=== PATIENT | female | born 1945 | race Caucasian/White ===

== ENCOUNTER 2016-05-30 18:41 | Inpatient (IN) | payer OTHER ==
[~2016-05-30] VITALS: Ht 147.3 cm; Wt 40.4 kg
[~2016-05-30 18:41] MED LIST: BACTRIM,SEPT1 TABLET PO; CARVEDILOL25 MG PO; CILOSTAZOL100 MG PO; COREG12.5 M1 PO; DOXYCYCLINE HY100 MG PO; DUONEB 2.5-0.5 M3 ML AEROSOL; HYCODAN SYRUP480 ML PO; LASIX40 MG PO; LEVAQUIN500 MG PO; LEXAPRO10 MG PO; LITE COAT ASPI325 M1 PO; NAMZARIC 14 MG1 EACH PO; NAMZARIC 21 MG1 EACH PO; NAMZARIC 28 MG1 EACH PO; NAMZARIC 7 MG-1 EACH PO; NICOTINE PATCH1 EAC2 TD; OXYCODONE-APAP1 EACH PO; PANTOPRAZOLE SO40 MG PO; PREDNISONE20 MG PO; PRINIVIL20 MG PO; PROVENTIL2.5 MG/3 M IH; SPIRIVA RESPIMAT4 GM IH; SPIRIVA1 INHALATI IH; SYMBICORT60 INHALAT IH; SYNTHROID50 MCG PO; Symbicort IH; VENTOLIN HFA18 GM IH; XANAX1 MG PO; ZOCOR40 MG PO; ZOLOFT100 MG PO
[2016-05-30 19:53] LABS: HEMATOCRIT 32.7 % (36.0-46.0); MCH 28.9 PG (29.0-34.0); MCHC 33.3 G/DL (30.0-36.0); MCV 86.7 FL (83-99); RBC DIS.WIDTH-CV 13.3 % (11.8-14.6); RBC DIS.WIDTH-SD 40.5 % (39-53); RED BLOOD COUNT 3.77 M/uL (3.80-5.20)
[2016-05-30 20:00] LABS: CHLORIDE 86 mEq/L (99-109); POTASSIUM 2.9 mEq/L (3.7-5.4)
[2016-05-30 20:01] LABS: SODIUM 130 mEq/L (136-147)
[2016-05-30 20:02] LABS: GLUCOSE 114 mg/dL (70-99)
[2016-05-30 20:03] LABS: ANION GAP 10 MEQ/L (2-14)
[2016-05-30 20:04] LABS: TOTAL BILIRUBIN 1.4 mg/dL (0.0-1.0)
[2016-05-30 20:05] LABS: ALKALINE PHOSPHATASE 81 IU/L (3-129)
[2016-05-30 20:06] LABS: GFR ESTIMATE (CALCULATED) > 59 mL/min/
[2016-05-30 20:07] LABS: UREA NITROGEN (BUN) 15 mg/dL (9-23)
[2016-05-30 20:29] LABS: TROP-I INTERPRETATION NEGATIVE; TROPONIN-I 0.09 ng/mL (0.0-0.30)
[2016-05-30 20:32] LABS: HEMATOLOGY COMMENT 1 SMEAR COMPATIBLE; MEAN PLAT.VOLUME 9.3 uM^3 (9.5-12.4)
[2016-05-30 20:42] LABS: PLATELET COUNT 138 K/uL (156-360); WHITE BLOOD COUNT 15.9 K/uL (4.1-10.2)
[2016-05-30 21:28] LABS: ADD MIUA? YES; BILIRUBIN SMALL; BLOOD NEGATIVE; COLOR YELLOW ((YELLOW)); GLUCOSE (STRIP) NEGATIVE; KETONES NEGATIVE; LEUKOCYTES TRACE; NITRITE NEGATIVE; PH, URINE 7.5 (5-8); PROTEIN (STRIP) NEGATIVE; SPECIFIC GRAVITY 1.017 (1.000-1.030)
[2016-05-30 21:43] LABS: EPITHELIAL CELLS NONE SEEN; RED BLOOD CELLS NONE SEEN /HPF (0-5); WHITE BLOOD CELLS 0-5 /HPF (0-5)
[2016-05-30 21:44] LABS: BACTERIA 1+; CASTS PRESENT /LPF; CRYSTALS NONE SEEN; MUCUS NONE SEEN; UCUL ADDED? NO
[2016-05-30 21:45] LABS: HYALINE CASTS 0-5 /LPF
[2016-05-30] MEDS ORDERED: DELTASONE20 M1 PO (23:03)
[2016-05-30] MEDS ORDERED: TYLENOL SINUS1 EA16 PO (23:04)
[2016-05-31 04:08] VITALS: BP 135/62
[2016-05-31 07:00] LABS: EOSINOPHIL (%) 1.7 % (0-5); EOSINOPHIL COUNT 0.2 K/uL (0-0.3); HEMATOCRIT 27.8 % (36.0-46.0); IMMATURE GRANULOCYTE (%) 1.2 % (0.0-0.7); IMMATURE GRANULOCYTE COUNT 0.1 K/uL; LYMPHOCYTE COUNT 1.6 K/uL (1.0-2.8); MCHC 33.5 G/DL (30.0-36.0); MCV 86.6 FL (83-99); MEAN PLAT.VOLUME 10.2 uM^3 (9.5-12.4); MONOCYTE (%) 7.3 % (3-12); MONOCYTE COUNT 0.7 K/uL (0-0.8); NEUTROPHIL (%) 72.2 % (45-76); NEUTROPHIL COUNT 6.7 K/uL (1.8-6.4); PLATELET COUNT 115 K/uL (156-360); RBC DIS.WIDTH-SD 44.1 % (39-53); RED BLOOD COUNT 3.21 M/uL (3.80-5.20); WHITE BLOOD COUNT 9.3 K/uL (4.1-10.2)
[2016-05-31 07:08] LABS: ANION GAP 8 MEQ/L (2-14); CHLORIDE 94 MEQ/L (99-109); GFR ESTIMATE (CALCULATED) > 59 mL/min/; SAMPLE HEMOLYSIS CHECK 0; SAMPLE ICTERIC CHECK 0; SAMPLE LIPEMIA CHECK 0; UREA NITROGEN (BUN) 11 mg/dL (9-23)
[2016-05-31 07:09] LABS: GLUCOSE 82 mg/dL (70-99); SODIUM 137 MEQ/L (136-147)
[2016-05-31 07:45] VITALS: BP 111/54
[2016-05-31 11:35] VITALS: BP 117/58
[2016-05-31 16:29] LABS: ANION GAP 3 MEQ/L (2-14); CHLORIDE 99 MEQ/L (99-109); GFR ESTIMATE (CALCULATED) > 59 mL/min/; SAMPLE HEMOLYSIS CHECK 0; SAMPLE ICTERIC CHECK 0; SAMPLE LIPEMIA CHECK 0; SODIUM 132 MEQ/L (136-147); UREA NITROGEN (BUN) 16 mg/dL (9-23)
[2016-05-31 16:36] LABS: GLUCOSE 167 mg/dL (70-99); POTASSIUM 4.7 MEQ/L (3.7-5.4)
[2016-05-31 16:40] VITALS: BP 132/63
[2016-05-31 20:00] VITALS: BP 146/61
[2016-05-31 23:43] VITALS: BP 136/89
[2016-06-01 03:33] VITALS: BP 109/49
[2016-06-01 06:48] LABS: EOSINOPHIL (%) 0.1 % (0-5); HEMATOCRIT 26.6 % (36.0-46.0); IMMATURE GRANULOCYTE COUNT 0.1 K/uL; LYMPHOCYTE COUNT 0.4 K/uL (1.0-2.8); MCH 28.5 PG (29.0-34.0); MCHC 32.3 G/DL (30.0-36.0); MCV 88.1 FL (83-99); MONOCYTE COUNT 0.3 K/uL (0-0.8); NEUTROPHIL (%) 91.3 % (45-76); NEUTROPHIL COUNT 8.1 K/uL (1.8-6.4); PLATELET COUNT 109 K/uL (156-360); RBC DIS.WIDTH-CV 14.2 % (11.8-14.6); RBC DIS.WIDTH-SD 45.1 % (39-53); RED BLOOD COUNT 3.02 M/uL (3.80-5.20); WHITE BLOOD COUNT 8.9 K/uL (4.1-10.2)
[2016-06-01 07:15] LABS: ANION GAP 4 MEQ/L (2-14); CHLORIDE 103 MEQ/L (99-109); GFR ESTIMATE (CALCULATED) > 59 mL/min/; GLUCOSE 146 mg/dL (70-99); POTASSIUM 4.6 MEQ/L (3.7-5.4); SAMPLE HEMOLYSIS CHECK 0; SAMPLE ICTERIC CHECK 0; SAMPLE LIPEMIA CHECK 0; SODIUM 133 MEQ/L (136-147); UREA NITROGEN (BUN) 10 mg/dL (9-23)
[2016-06-01 07:30] VITALS: BP 113/54
[2016-06-01 11:20] VITALS: BP 113/53
[2016-06-01 15:08] VITALS: BP 126/55
[2016-06-01 19:05] VITALS: BP 129/54
[2016-06-01 23:10] VITALS: BP 121/51
[2016-06-02 03:20] VITALS: BP 138/54
[2016-06-02 07:20] VITALS: BP 121/52
[2016-06-02 11:05] VITALS: BP 121/58
[2016-06-02 15:50] VITALS: BP 109/53
[2016-06-02 19:05] VITALS: BP 135/62
[2016-06-02 23:20] VITALS: BP 145/63
[2016-06-03 03:20] VITALS: BP 138/65
[2016-06-03 05:48] LABS: HEMATOCRIT 27.3 % (36.0-46.0); MCH 28.8 PG (29.0-34.0); MCHC 32.6 G/DL (30.0-36.0); MCV 88.3 FL (83-99); MEAN PLAT.VOLUME 9.1 uM^3 (9.5-12.4); PLATELET COUNT 130 K/uL (156-360); RBC DIS.WIDTH-CV 14.1 % (11.8-14.6); RED BLOOD COUNT 3.09 M/uL (3.80-5.20); WHITE BLOOD COUNT 13.2 K/uL (4.1-10.2)
[2016-06-03 05:51] LABS: SODIUM 139 mEq/L (136-147)
[2016-06-03 05:53] LABS: GLUCOSE 118 mg/dL (70-99)
[2016-06-03 05:54] LABS: ANION GAP 4 MEQ/L (2-14)
[2016-06-03 05:56] LABS: ALKALINE PHOSPHATASE 78 IU/L (3-129)
[2016-06-03 05:57] LABS: GFR ESTIMATE (CALCULATED) > 59 mL/min/
[2016-06-03 05:58] LABS: UREA NITROGEN (BUN) 11 mg/dL (9-23)
[2016-06-03 06:01] LABS: CHLORIDE 110 mEq/L (99-109); TOTAL BILIRUBIN 0.4 mg/dL (0.0-1.0)
[2016-06-03 07:20] VITALS: BP 117/67
[2016-06-03 11:40] VITALS: BP 124/56
[2016-06-03 16:15] VITALS: BP 139/60
[2016-06-03] MEDS ORDERED: NICOTINE PATCH1 EAC2 TD (19:54)
[2016-06-03] MEDS ORDERED: K-DUR20 MEQ PO (19:54)
[2016-06-03] MEDS ORDERED: LEVAQUIN500 MG PO (19:54)
[2016-06-03] MEDS ORDERED: LEVETIRACETAM500 MG PO (19:54)
== END 2016-06-03 21:15 | disposition home health service (06) | DRG 100 ==
LOC: EME 18:41 → 2EAST 22:31 → EDOF 22:31 → 2EAST 05-31 00:39
PROVIDERS: Emergency Medicine; Family Medicine; Internal Medicine
DX: G40.409 Other generalized epilepsy and epileptic syndromes, not intractable, without status epilepticus (principal); J96.00 Acute respiratory failure, unspecified whether with hypoxia or hypercapnia; J18.9 Pneumonia, unspecified organism; J44.1 Chronic obstructive pulmonary disease with (acute) exacerbation; E87.1 Hypo-osmolality and hyponatremia; F05 Delirium due to known physiological condition; J98.11 Atelectasis; E87.6 Hypokalemia; D64.9 Anemia, unspecified; I25.10 Atherosclerotic heart disease of native coronary artery without angina pectoris; K21.9 Gastro-esophageal reflux disease without esophagitis; E03.9 Hypothyroidism, unspecified; F41.9 Anxiety disorder, unspecified; M62.81 Muscle weakness (generalized); G89.29 Other chronic pain; Z99.81 Dependence on supplemental oxygen; F17.210 Nicotine dependence, cigarettes, uncomplicated; Z95.810 Presence of automatic (implantable) cardiac defibrillator; I25.2 Old myocardial infarction
CPT/HCPCS: 70450; 71010; 71020; 80048; 80048 91; 80053; 81003; 84484; 85025; 85027; 86850; 86900; 86901; 86920; 93005; 94640; 94640 76; 94760; 94799; 95819; 99202; 99281; 99285; J1650; J1953; J2060; J3480; J7050; J7512

== ENCOUNTER 2016-07-26 16:07 | Inpatient (IN) | payer OTHER ==
[~2016-07-26] VITALS: Ht 148.6 cm; Wt 46.8 kg
[~2016-07-26 16:07] MED LIST changes: +DELTASONE20 M1 PO; +K-DUR20 MEQ PO; +LEVETIRACETAM500 MG PO; +TYLENOL SINUS1 EA16 PO
[2016-07-26 17:00] LABS: EOSINOPHIL (%) 2.2 % (0-5); EOSINOPHIL COUNT 0.1 K/uL (0-0.3); HEMATOCRIT 34.5 % (36.0-46.0); IMMATURE GRANULOCYTE (%) 1.3 % (0.0-0.7); IMMATURE GRANULOCYTE COUNT 0.6 K/uL; MCH 28.1 PG (29.0-34.0); MCHC 32.2 G/DL (30.0-36.0); MCV 87.3 FL (83-99); MEAN PLAT.VOLUME 8.5 uM^3 (9.5-12.4); MONOCYTE (%) 8.9 % (3-12); MONOCYTE COUNT 0.4 K/uL (0-0.8); NEUTROPHIL (%) 65.3 % (45-76); PLATELET COUNT 170 K/uL (156-360); RBC DIS.WIDTH-CV 13.6 % (11.8-14.6); RED BLOOD COUNT 3.95 M/uL (3.80-5.20); WHITE BLOOD COUNT 4.6 K/uL (4.1-10.2)
[2016-07-26 17:14] LABS: CHLORIDE 96 mEq/L (99-109); SODIUM 134 mEq/L (136-147)
[2016-07-26 17:16] LABS: GLUCOSE 100 mg/dL (70-99)
[2016-07-26 17:17] LABS: ANION GAP 9 MEQ/L (2-14)
[2016-07-26 17:18] LABS: TOTAL BILIRUBIN 0.2 mg/dL (0.0-1.0)
[2016-07-26 17:19] LABS: ALKALINE PHOSPHATASE 76 IU/L (3-129)
[2016-07-26 17:20] LABS: GFR ESTIMATE (CALCULATED) > 59 mL/min/
[2016-07-26 17:21] LABS: UREA NITROGEN (BUN) 11 mg/dL (9-23)
[2016-07-26 17:24] LABS: TROP-I INTERPRETATION NEGATIVE; TROPONIN-I < 0.01 ng/mL (0.0-0.30)
[2016-07-26 18:59] LABS: ADD MIUA? YES; BILIRUBIN NEGATIVE; BLOOD SMALL; COLOR YELLOW ((YELLOW)); GLUCOSE (STRIP) NEGATIVE; KETONES NEGATIVE; LEUKOCYTES NEGATIVE; NITRITE NEGATIVE; PROTEIN (STRIP) NEGATIVE; UROBILINOGEN 0.2 MG/DL (0.2-1.0)
[2016-07-26 19:01] LABS: BACTERIA NONE SEEN /HPF; EPITHELIAL CELLS RARE /HPF; MUCUS TRACE /LPF; RED BLOOD CELLS 0-5 /HPF (0-5); UCUL ADDED? NO; WHITE BLOOD CELLS 0-5 /HPF (0-5)
[2016-07-26 19:18] LABS: INFLUENZA A VIRAL ANTIGEN NEGATIVE; INFLUENZA B VIRAL ANTIGEN POSITIVE
[2016-07-26 20:12] LABS: TROP-I INTERPRETATION NEGATIVE; TROPONIN-I < 0.01 ng/mL (0.0-0.30)
[2016-07-26 21:57] VITALS: BP 122/56
[2016-07-26 23:32] VITALS: BP 120/55
[2016-07-27 05:12] LABS: EOSINOPHIL (%) 0 % (0-5); HEMATOCRIT 30.7 % (36.0-46.0); IMMATURE GRANULOCYTE (%) 1.1 % (0.0-0.7); IMMATURE GRANULOCYTE COUNT 0.3 K/uL; LYMPHOCYTE COUNT 0.7 K/uL (1.0-2.8); MCH 28.2 PG (29.0-34.0); MCHC 32.6 G/DL (30.0-36.0); MCV 86.5 FL (83-99); MEAN PLAT.VOLUME 8.7 uM^3 (9.5-12.4); MONOCYTE (%) 4.6 % (3-12); MONOCYTE COUNT 0.1 K/uL (0-0.8); NEUTROPHIL (%) 70.9 % (45-76); PLATELET COUNT 138 K/uL (156-360); RBC DIS.WIDTH-CV 13.4 % (11.8-14.6); RBC DIS.WIDTH-SD 41.3 % (39-53); RED BLOOD COUNT 3.55 M/uL (3.80-5.20)
[2016-07-27 05:13] LABS: WHITE BLOOD COUNT 2.8 K/uL (4.1-10.2)
[2016-07-27 05:18] LABS: CHLORIDE 97 mEq/L (99-109); POTASSIUM 4.2 mEq/L (3.7-5.4); SODIUM 133 mEq/L (136-147)
[2016-07-27 05:20] VITALS: BP 115/72
[2016-07-27 05:21] LABS: ANION GAP 8 MEQ/L (2-14)
[2016-07-27 05:24] LABS: GFR ESTIMATE (CALCULATED) > 59 mL/min/
[2016-07-27 05:25] LABS: UREA NITROGEN (BUN) 15 mg/dL (9-23)
[2016-07-27 05:29] LABS: GLUCOSE 184 mg/dL (70-99)
[2016-07-27 08:13] VITALS: BP 126/60
[2016-07-27 11:30] VITALS: BP 114/52
[2016-07-27 16:40] VITALS: BP 121/59
[2016-07-27 20:39] VITALS: BP 124/62
[2016-07-27 23:48] VITALS: BP 140/72
[2016-07-28 05:09] VITALS: BP 100/74
[2016-07-28 06:05] LABS: EOSINOPHIL (%) 0 % (0-5); HEMATOCRIT 32.9 % (36.0-46.0); IMMATURE GRANULOCYTE (%) 0.4 % (0.0-0.7); LYMPHOCYTE COUNT 0.7 K/uL (1.0-2.8); MCH 26.4 PG (29.0-34.0); MCHC 30.7 G/DL (30.0-36.0); MCV 86.1 FL (83-99); MEAN PLAT.VOLUME 9.2 uM^3 (9.5-12.4); MONOCYTE (%) 4.8 % (3-12); MONOCYTE COUNT 0.2 K/uL (0-0.8); NEUTROPHIL (%) 79.2 % (45-76); NEUTROPHIL COUNT 3.8 K/uL (1.8-6.4); PLATELET COUNT 131 K/uL (156-360); RBC DIS.WIDTH-CV 13.7 % (11.8-14.6); RBC DIS.WIDTH-SD 43.5 % (39-53); RED BLOOD COUNT 3.82 M/uL (3.80-5.20); WHITE BLOOD COUNT 4.8 K/uL (4.1-10.2)
[2016-07-28 06:10] LABS: ANION GAP 6 MEQ/L (2-14); CHLORIDE 97 MEQ/L (99-109); GFR ESTIMATE (CALCULATED) > 59 mL/min/; GLUCOSE 121 mg/dL (70-99); POTASSIUM 4.6 MEQ/L (3.7-5.4); SAMPLE HEMOLYSIS CHECK 0; SAMPLE ICTERIC CHECK 0; SAMPLE LIPEMIA CHECK 0; SODIUM 136 MEQ/L (136-147)
[2016-07-28 06:12] LABS: UREA NITROGEN (BUN) 26 mg/dL (9-23)
[2016-07-28 08:19] VITALS: BP 119/70
[2016-07-28 16:25] VITALS: BP 103/53
[2016-07-28 20:23] VITALS: BP 121/56
[2016-07-28 23:51] VITALS: BP 131/69
[2016-07-29 07:50] VITALS: BP 142/76
[2016-07-29 11:30] VITALS: BP 100/40
[2016-07-29 16:05] VITALS: BP 115/58
[2016-07-29 23:23] VITALS: BP 113/55
[2016-07-30 05:28] LABS: HEMATOCRIT 31.7 % (36.0-46.0); MCH 27.5 PG (29.0-34.0); MCHC 31.5 G/DL (30.0-36.0); MCV 87.1 FL (83-99); MEAN PLAT.VOLUME 9.4 uM^3 (9.5-12.4); PLATELET COUNT 142 K/uL (156-360); RBC DIS.WIDTH-CV 13.4 % (11.8-14.6); RBC DIS.WIDTH-SD 43.1 % (39-53); RED BLOOD COUNT 3.64 M/uL (3.80-5.20); WHITE BLOOD COUNT 5.3 K/uL (4.1-10.2)
[2016-07-30 05:51] LABS: ALKALINE PHOSPHATASE 64 IU/L (3-129); ANION GAP 6 MEQ/L (2-14); CHLORIDE 95 MEQ/L (99-109); GFR ESTIMATE (CALCULATED) > 59 mL/min/; GLUCOSE 145 mg/dL (70-99); POTASSIUM 4.3 MEQ/L (3.7-5.4); SAMPLE HEMOLYSIS CHECK 0; SAMPLE ICTERIC CHECK 0; SAMPLE LIPEMIA CHECK 0; SODIUM 138 MEQ/L (136-147); TOTAL BILIRUBIN 0.1 MG/DL (0.0-1.0); UREA NITROGEN (BUN) 24 mg/dL (9-23)
[2016-07-30 07:35] VITALS: BP 134/60
[2016-07-30 16:34] VITALS: BP 129/58
[2016-07-30 23:47] VITALS: BP 119/58
[2016-07-31 07:39] VITALS: BP 138/60
[2016-07-31 16:01] VITALS: BP 140/63
[2016-07-31 23:30] VITALS: BP 120/58
[2016-08-01 07:20] LABS: ALKALINE PHOSPHATASE 66 IU/L (3-129); ANION GAP 7 MEQ/L (2-14); CHLORIDE 93 MEQ/L (99-109); GFR ESTIMATE (CALCULATED) > 59 mL/min/; GLUCOSE 102 mg/dL (70-99); POTASSIUM 4.2 MEQ/L (3.7-5.4); SAMPLE HEMOLYSIS CHECK 0; SAMPLE ICTERIC CHECK 0; SAMPLE LIPEMIA CHECK 0; SODIUM 140 MEQ/L (136-147); TOTAL BILIRUBIN 0.3 MG/DL (0.0-1.0); UREA NITROGEN (BUN) 21 mg/dL (9-23)
[2016-08-01 07:27] LABS: HEMATOCRIT 34.1 % (36.0-46.0); MCH 26.7 PG (29.0-34.0); MCHC 30.8 G/DL (30.0-36.0); MCV 86.8 FL (83-99); MEAN PLAT.VOLUME 9.2 uM^3 (9.5-12.4); RBC DIS.WIDTH-CV 13.6 % (11.8-14.6); RBC DIS.WIDTH-SD 43.4 % (39-53); RED BLOOD COUNT 3.93 M/uL (3.80-5.20)
[2016-08-01 07:28] LABS: PLATELET COUNT 210 K/uL (156-360); WHITE BLOOD COUNT 8.3 K/uL (4.1-10.2)
[2016-08-01 08:30] VITALS: BP 140/60
[2016-08-01 16:30] VITALS: BP 140/50
[2016-08-01 23:59] VITALS: BP 118/53
[2016-08-02 07:40] VITALS: BP 140/50
[2016-08-02 13:00] VITALS: BP 130/60
[2016-08-02] MEDS ORDERED: PREDNISONE20 MG PO (15:29)
[2016-08-02] MEDS ORDERED: CEFDINIR300 MG PO (15:29)
[2016-08-02] MEDS ORDERED: ROBITUSSIN AC,T10 ML PO (15:29)
== END 2016-08-02 16:28 | disposition home health service (06) | DRG 190 ==
LOC: EME 16:07 → EDOF 20:31 → 3EAST 20:31
PROVIDERS: Emergency Medicine; Family Medicine; Internal Medicine
DX: J44.0 Chronic obstructive pulmonary disease with (acute) lower respiratory infection (principal); J10.00 Influenza due to other identified influenza virus with unspecified type of pneumonia; Z99.81 Dependence on supplemental oxygen; J44.1 Chronic obstructive pulmonary disease with (acute) exacerbation; F17.210 Nicotine dependence, cigarettes, uncomplicated; D64.9 Anemia, unspecified; J90 Pleural effusion, not elsewhere classified; E03.9 Hypothyroidism, unspecified; G40.909 Epilepsy, unspecified, not intractable, without status epilepticus; R09.02 Hypoxemia; I25.10 Atherosclerotic heart disease of native coronary artery without angina pectoris; Z95.810 Presence of automatic (implantable) cardiac defibrillator; K21.9 Gastro-esophageal reflux disease without esophagitis; G89.29 Other chronic pain; F41.9 Anxiety disorder, unspecified
CPT/HCPCS: 71020; 80048; 80053; 81003; 83880; 84484; 85025; 85027; 87502; 93005; 94640; 94640 76; 94760; 94799; 99202; 99281; 99285; J1650; J2930; J7040; J7512

== ENCOUNTER 2016-09-29 11:42 | Emergency (ER) | payer OTHER ==
[~2016-09-29] VITALS: Ht 149.9 cm; Wt 51.1 kg
[~2016-09-29 11:42] MED LIST changes: +CEFDINIR300 MG PO; +ROBITUSSIN AC,T10 ML PO
[2016-09-29 12:13] LABS: HEMATOCRIT 39.8 % (36.0-46.0); MCH 27.2 PG (29.0-34.0); MCHC 30.9 G/DL (30.0-36.0); MCV 88.1 FL (83-99); MEAN PLAT.VOLUME 8.9 uM^3 (9.5-12.4); PLATELET COUNT 261 K/uL (156-360); RBC DIS.WIDTH-CV 14.4 % (11.8-14.6); RBC DIS.WIDTH-SD 46.3 % (39-53); RED BLOOD COUNT 4.52 M/uL (3.80-5.20); WHITE BLOOD COUNT 7.5 K/uL (4.1-10.2)
[2016-09-29 12:32] LABS: CHLORIDE 95 mEq/L (99-109); POTASSIUM 3.8 mEq/L (3.7-5.4); SODIUM 138 mEq/L (136-147)
[2016-09-29 12:34] LABS: GLUCOSE 146 mg/dL (70-99)
[2016-09-29 12:36] LABS: ANION GAP 7 MEQ/L (2-14); TOTAL BILIRUBIN 0.3 mg/dL (0.0-1.0)
[2016-09-29 12:38] LABS: ALKALINE PHOSPHATASE 80 IU/L (3-129); GFR ESTIMATE (CALCULATED) > 59 mL/min/
[2016-09-29 12:39] LABS: UREA NITROGEN (BUN) 7 mg/dL (9-23)
[2016-09-29 14:11] LABS: ADD MIUA? NO; BILIRUBIN NEGATIVE; BLOOD NEGATIVE; COLOR STRAW ((YELLOW)); GLUCOSE (STRIP) NEGATIVE; KETONES NEGATIVE; LEUKOCYTES NEGATIVE; NITRITE NEGATIVE; PROTEIN (STRIP) NEGATIVE; SPECIFIC GRAVITY 1.005 (1.000-1.030); UCUL ADDED? NO; UROBILINOGEN 0.2 MG/DL (0.2-1.0)
[2016-09-29] MEDS ORDERED: COLACE100 MG PO (14:58)
[2016-09-29] MEDS ORDERED: BENTYL20 MG PO (14:58)
[2016-09-29 15:18] VITALS: BP 132/62
== END 2016-09-29 15:19 | disposition home or self-care (01) ==
LOC: EME 11:42
DX: K59.00 Constipation, unspecified (principal); B34.9 Viral infection, unspecified; Z72.0 Tobacco use; Z99.81 Dependence on supplemental oxygen; Z95.0 Presence of cardiac pacemaker; Z95.810 Presence of automatic (implantable) cardiac defibrillator; Z88.5 Allergy status to narcotic agent; Z88.2 Allergy status to sulfonamides; J45.909 Unspecified asthma, uncomplicated; J44.9 Chronic obstructive pulmonary disease, unspecified; I25.2 Old myocardial infarction; I10 Essential (primary) hypertension; E03.9 Hypothyroidism, unspecified; Z87.442 Personal history of urinary calculi
CPT/HCPCS: 74020; 80053; 81003; 85027; 99281; 99284